=== PATIENT | female | born 1965 | race African-American/Black ===

== ENCOUNTER 2025-07-16 21:15 | Emergency (ER) | payer MEDICAID ==
[~2025-07-16] VITALS: Ht 167.6 cm; Wt 87.0 kg
[2025-07-16 21:17] VITALS: O2SAT 98
[2025-07-16 21:26] VITALS: O2SAT 96
[2025-07-16 23:34] LABS: BASOPHILS % 0.2 % (0.0-2.0); EOSINOPHILS % 5.2 % (0.0-5.0); HEMATOCRIT. 39.3 % (36.0-48.0); HEMOGLOBIN. 13.1 g/dL (12.0-16.0); LYMPHOCYTES % 41.4 % (20.0-50.0); MEAN PLATELET VOLUME 8.7 fl (7.4-10.4); MONOCYTES % 9.4 % (2.0-8.0); NEUTROPHILS % 43.8 % (40.0-76.0); PLATELET 176 x1000/uL (130-400); RED BLOOD CELL COUNT 4.77 mill/uL (4.2-5.4); RED CELL DISTRIBUTION WIDTH 14.0 % (11.6-14.6)
[2025-07-16 23:45] LABS: CREATININE 1.0 mg/dL (0.6-1.0)
[2025-07-16 23:46] LABS: UREA NITROGEN BLOOD 9 mg/dL (9-23)
[2025-07-16 23:48] LABS: BILIRUBIN DIRECT 0.2 mg/dL (<=3.0); BILIRUBIN TOTAL 0.6 mg/dL (0.1-1.0); PROTEIN TOTAL 7.3 g/dL (6.0-8.3)
[2025-07-17 00:58] LABS: ASPARTATE AMINOTRANSFERASE 19 IU/L (<34)
[2025-07-17 01:16] LABS: TROPONIN I HIGH SENSITIVITY < 4 ng/L (3.0-34)
[2025-07-17] MEDS ORDERED: FAMO-135 MT (01:27)
[2025-07-17 01:48] VITALS: BP 135/76; PULSE 76; RESP 16; TEMP 36.9
[2025-07-17 03:43] LABS: CLARITY URINE CLEAR (CLEAR); COLOR URINE YELLOW (YELLOW); GLUCOSE URINE NEGATIVE (NEGATIVE); KETONES URINE NEGATIVE (NEGATIVE); NITRITE URINE NEGATIVE (NEGATIVE); OCCULT BLOOD URINE TRACE (NEGATIVE); PH URINE 5.5 (4.5-8.0); PROTEIN URINE NEGATIVE (NEGATIVE); SPECIFIC GRAVITY URINE 1.009 (1.005-1.030); UROBILINOGEN URINE 0.2 E.U./dL (0.2-1.0)
[2025-07-17 03:44] LABS: LEUKOCYTE ESTERASE URINE 3+ (NEGATIVE)
[2025-07-17 08:02] LABS: BACTERIA URINE NONE SEEN; RBC URINE NONE SEEN /hpf (0-2)
== END 2025-07-17 00:49 | disposition home or self-care (01) ==
LOC: ER 21:15
DX: R07.89 Other chest pain (principal); R11.2 Nausea with vomiting, unspecified; E78.00 Pure hypercholesterolemia, unspecified; I10 Essential (primary) hypertension; Z88.0 Allergy status to penicillin
CPT/HCPCS: 36415; 71045; 80048; 80076; 81003; 84484; 85025; 93005; 99285